=== PATIENT | female | born 1980 | race American Indian/Alaskan Native ===

== ENCOUNTER 2016-11-15 16:50 | Emergency (ER) | payer SELFPAY ==
[2016-11-15] MEDS ORDERED: ACETAMINOPHEN TAB 500 MG TAB PO STA (18:42)
[2016-11-15] MEDS ORDERED: IBUPROFEN 600 MG TAB PO STA (18:42)
--- NOTE | 2016-11-15 18:47 | ED ---
Fever HPI - General Chief Complaint: Fever Stated Complaint: Chills Time Seen by Provider: 11/15/16 18:38 Source: patient, family, RN notes reviewed Mode of arrival: ambulatory - History of Present Illness Initial Comments: 35-year-old female presents to the emergency department with a chief complaint of fever. The patient has had a fever for the past day or so. They've not been given any medication. She complains of throat pain she complains of a cough. There's been no nausea or vomiting. They deny any significant health history they deny any nausea or vomiting. They were concerned due to the continued fevers so they thought that they should be seen. Patient denies any recent shortness of breath, chest pain, back pain, abdominal pain, nausea vomiting, numbness or tingling, dysuria or hematuria, constipation or diarrhea, headaches or visual changes, or any other current symptoms. - Related Data Previous Rx's Medication Instructions Recorded Amoxicillin 500 mg PO Q8H #21 capsule 11/15/16 Allergies Allergy/AdvReac Type Severity Reaction Status Date / Time No Known Allergies Allergy Verified 11/15/16 18:46 Review of Systems ROS Statement: Those systems with pertinent positive or pertinent negative responses have been documented in the HPI. ROS Other: All systems not noted in ROS Statement are negative. Past Medical History Past Medical History: No Reported History History of Any Multi-Drug Resistant Organisms: None Reported Past Surgical History: No Surgical Hx Reported Past Psychological History: No Psychological Hx Reported Smoking Status: Never smoker Past Alcohol Use History: None Reported Past Drug Use History: None Reported General Exam - General Exam Comments Initial Comments: General exam: Alert, active, comfortable in no apparent distress Head: Normocephalic Eyes: Normal reaction of pupils, equal size, normal range of extraocular motion Ears: normal external ear canals, pink tympanic membranes with normal cone of light Nose: clear with pink turbinates Throat: Erythema with exudates noted with enlarged tonsils. Neck: no masses, no nuchal rigidity Chest: no chest wall deformity Lungs: equal air entry with no crackles or wheeze CVS: S1 and S2 normal with no audible mumurs, regular rhythm Abdomen: no hepatosplenomegaly, normal bowel sounds, no guarding or rigidity Spine: no scoliosis or deformity Skin: no rashes Neurological: No focal deficits, tone is normal in all 4 extremities Course Vital Signs 11/15/16 17:24 Temperature 101.9 F H Pulse Rate 112 H Respiratory 18 Rate Blood Pressure 109/64 O2 Sat by Pulse 99 Oximetry Medical Decision Making - Medical Decision Making 35-year-old female presents to the EMERGENCY department with a chief complaint of fever. This time patient does appear to have acute pharyngitis. Due to the fever and the look of the throat we will start antibiotics. We discussed follow -up with her doctor and return parameters. We discussed all the patient's questions. Patient stated that understood and agree with the plan. They will be discharged home. - Radiology Data Radiology results: report reviewed, image reviewed Disposition Clinical Impression: Acute pharyngitis Disposition: HOME SELF-CARE Condition: Stable Instructions: Fever in Adults (ED), Pharyngitis (ED) Additional Instructions: Please use medication as discussed. Please follow up with family doctor if symptoms have not improved over the next two days. Please return to the emergency room if your symptoms increase or worsen or for any other concerns. Prescriptions: Amoxicillin 500 mg PO Q8H #21 capsule Referrals: Jake Jhaveri DO [Primary Care Provider] - 1-2 days Time of Disposition: 20:04
--- NOTE | 2016-11-15 19:03 | XR ---
EXAMINATION TYPE: XR chest 2V DATE OF EXAM: 11/15/2016 6:54 PM COMPARISON: Prior chest x-ray March 14, 2016. HISTORY: Fever and cough. TECHNIQUE: Frontal and lateral views of the chest are obtained. FINDINGS: There is no focal air space opacity, pleural effusion, or pneumothorax seen. The cardiac silhouette size is within normal limits. The osseous structures are intact. IMPRESSION: No acute pulmonary process. No significant change from prior.
[2016-11-15 20:14] VITALS: BP 121/56; PULSE 105; RESP 20; TEMP 100.3
== END 2016-11-15 20:13 | disposition home or self-care (01) ==
LOC: EC 16:50
DX: J02.9 Acute pharyngitis, unspecified (principal); R05 Cough
CPT/HCPCS: 71020; 87502; 99283

== ENCOUNTER → 2017-04-15 | Outpatient (CLI) | payer OTHER ==
--- NOTE | 2017-04-16 14:08 | US ---
EXAMINATION TYPE: US pelvis complete transvag DATE OF EXAM: 04/15/2017 COMPARISON: NONE CLINICAL HISTORY: N92.4 MENORRHAGIA WITH IUD. TECHNIQUE: Transvaginal (TV) and Transabdominal (TA) endovaginal scanning performed for better evalu ation of uterus, patient refused further evaluation Date of LMP: 3 weeks ago EXAM MEASUREMENTS: Uterus: 11.3 x 7.1 x 9.0 cm Endometrial Stripe: 1.2 cm Right Ovary: not visualized Left Ovary: 3.8 x 2.4 x 3.6 cm 1. 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 Endometrium: IUD in place 3. Right Ovary: not visualized 4. Left Ovary: 2.0 x 2.1 x 1.6 cm probable cyst 5. Bilateral Adnexa: wnl 6. Posterior cul-de-sac: no free fluid as described above. IMPRESSION: IUD present along the endometrium. Left ovarian cyst. Nonvisualization of the right ovary . Uterine leiomyoma
== END | disposition home or self-care (01) ==
LOC: RADUSWWP 15:36
PROVIDERS: ATTEND Obstetrics & Gynecology
DX: N83.202 Unspecified ovarian cyst, left side (principal); D25.9 Leiomyoma of uterus, unspecified
CPT/HCPCS: 76830; 76856

== ENCOUNTER 2017-10-05 04:50 | Outpatient (CLI) | payer OTHER ==
[2017-10-05 05:59] LABS: Appearance,Urine Clear (Clear); Bilirubin,Urine Negative (Negative); Blood,Urine Small (Negative); Color,Urine Yellow; Glucose,Urine (UA) Negative (Negative); Ketones,Urine Negative (Negative); Leukocyte Esterase,Urine Negative (Negative); Mucus,Urine Moderate /hpf; Nitrite,Urine Negative (Negative); Protein,Urine Trace (Negative); RBC,Urine 6 /hpf (0-5); Specific Gravity,Urine 1.017 (1.001-1.035); Squamous Epithelial Cell,Urine 1 /hpf (0-4); Urobilinogen,Urine <2.0 mg/dL (<2.0); WBC,Urine 1 /hpf (0-5)
[2017-10-05 06:10] VITALS: BP 130/72; PULSE 94; RESP 18; TEMP 98.2
[2017-10-05] MEDS ORDERED: ACETAMINOPHEN IV (For NPO) 1,000 MG in EMPTY BAG 1 BAG IVPB STA (06:35)
[2017-10-05] MEDS ORDERED: ceFAZolin IN SWFI 2 GM/20 ML SYRINGE IVP ONE (06:35)
[2017-10-05] MEDS ORDERED: LACTATED RINGERS 1,000 ML IV SCH (06:45)
--- NOTE | 2017-10-21 10:49 | P.MSEPDOC ---
Presenting Problems - Arrival Data Date of Arrival on Unit: 10/05/17 Time of Arrival on Unit: 04:53 Mode of Transport: Wheelchair - Complaint OB-Reason for Admission/Chief Complaint: Pain Comment: abdominal pain and back pain Medical History - Information : 5 Para: 4 Term: 4 : 0 Abortions: Spontaneous or Elective: 0 Number of Living Children: 4 - Gestational Age Gestational Age by CHANTALE (wks/days): 28 Weeks and 1 Days - History Comment: Denies problems with Review of Systems - Review of Systems Constitutional: No problems Breast: No problems ENT: No problems Cardiovascular: No problems Respiratory: No problems Gastrointestinal: No problems Genitourinary: No problems Musculoskeletal: No problems Neurological: No problems Skin: No problems Vital Signs - Temperature Temperature: 98.2 F Temperature Source: Temporal Artery Scan - Pulse Right Supine Brachial Pulse Rate: 94 Pulse Assessment Method: Automatic Cuff - Respirations Respiratory Rate: 18 Oxygen Delivery Method: Room Air O2 Sat by Pulse Oximetry: 98 - Blood Pressure Right Arm Blood Pressure: 130/72 Blood Pressure Mean: 91 Blood Pressure Source: Automatic Cuff Medical Screen Scoring (Pre) - Cervical Exam Dilation: 0 cm = 0 Membranes: Intact - Uterine Contractions Frequency: N/A Duration: N/A Intensity: N/A - Maternal Vital Signs Maternal Temperature: N/A Maternal Blood Pressure: N/A Maternal Respirations: N/A - Pain Assessment Pain Location and Character: Back Pain Scale Used: Numeric (1 - 10) Pain Intensity: 6 Pain Management Goal: 5 Pain Description: *Acute, Shooting Pain Radiation Location: Back Pain Frequency: Intermittent Pain Duration: 24 Pain Duration Units: Hours Pain Behavior: Fidgeting Effects of Pain: Moving slow Pain Aggravating Factors: ADL's - Maternal Trauma Maternal Trauma: N/A - Assessment Baseline FHR: 135 Heart Rate - NICHD Category: Category I (Normal) = 0 NST: Reactive Position: N/A Station: N/A - Total Score Total Score (Pre): 0 - Level of Risk Level of Risk: Low (0-5) Physician Notification (Pre) - Physician Notified Physician Notified Date: 10/05/17 Physician Notified Time: 05:10 Physician/Practitioner Notifed:: Dr López Spoke With: Dr López New Order Received: Yes - Notification Comment Comment: Obtain FFN and check cervix, don't send FFN if closed, send UA and may discharge to home if WNL, if not call back for orders Physician Notification (Post) - Physician Notified Physician Notified Date: 10/05/17 Physician Notified Time: 07:45 Physician/Practitioner Notified:: Dr López Spoke With: Dr López New Order Received: Yes - Notification Comment Comment: IV fluids given x 1 liter bolus, IV offirmev, IV kefzol. 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 rest, increase fluids and folllow up in office within one week Disposition - Disposition OB Disposition: Discharge to home Discharge Date: 10/05/17 Discharge Time: 08:00 I agree with the RN Medical Screening Exam: Yes Risk & Benefit of care provided described in d/c instruction: Yes Diagnosis: CALCULUS OF KIDNEY
== END 2017-10-05 08:03 | disposition home or self-care (01) ==
LOC: FBPOP 04:50
PROVIDERS: ATTEND Obstetrics & Gynecology Obstetrics
DX: O99.89 Other specified diseases and conditions complicating pregnancy, childbirth and the puerperium (principal); N20.2 Calculus of kidney with calculus of ureter; Z3A.28 28 weeks gestation of pregnancy
CPT/HCPCS: 59025; 96361; 96365; 96375; 81001; G0463; J0131; J0690; 99214

== ENCOUNTER 2017-12-20 09:41 | Inpatient (IN) | payer OTHER ==
[2017-12-28] MEDS: LACTATED RINGERS 1,000 ML IV SCH (12:15)
--- NOTE | 2017-12-28 12:33 | P.HPOB ---
History of Present Illness H&P Date: 12/28/17 This is a 37-year-old 5 Para 4004 EDC 12/20/2017 at 41-4/7 weeks' gestation. Patient was initially scheduled for induction this morning, she and her canceled late last night. She was seen in the office today, nonstress test was nonreactive. She was counseled thoroughly and elected to present for artificial amniorrhexis and oxytocin. Patient states fetus has been active throughout the . She denies uterine contractions, denies fluid leakage or vaginal bleeding. history: Blood type is O+, group B strep cultures positive, HIV testing , gonorrhea and chlamydia cultures all negative. VDRL nonreactive. Rubella status immune. One-hour Glucola 124. Social history patient is , she denies alcohol tobacco or drug use. Past obstetric history significant for spontaneous vaginal deliveries 4, all with the attendance of her mother in her home in the [facility]. No weight's are available. Family history is noncontributory. Current medications vitamins daily. ALLERGIES none known. Surgical history negative. Past medical history negative. On exam this is a pleasant female who understand Slovenian minimally. 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 Patient is 5 foot 6-1/2 inches, approximately 180 pounds, blood pressure 125/78, pulse 86, patient is afebrile. The general physical exam is within normal limits. The chest is clear in all vanessa. The cervix is 3 cm dilated, 50-60% effaced, -2 station, vertex presentation. Artificial amniorrhexis reveals meconium-stained fluid. heart rate is in the 140s baseline with minimal variability, no obvious decelerations noted. Impression: 41-4/7 weeks intrauterine , meconium-stained fluid, positive group B strep cultures, nonreactive NST. Here for induction of labor. Plan: Penicillin G per hospital protocol. Oxytocin per hospital protocol. Close maternal and surveillance. Analgesic options reviewed with the patient. Anticipate normal spontaneous vaginal delivery. Patient is hoping to have tubal ligation tomorrow morning pending progress. Review of Systems Constitutional: Reports as per HPI Past Medical History Past Medical History: No Reported History History of Any Multi-Drug Resistant Organisms: None Reported Past Surgical History: No Surgical Hx Reported Smoking Status: Never smoker Medications and Allergies Home Medications Medication Instructions Recorded Confirmed Type No Known Home Medications [No 06/03/17 10/05/17 History Known Home Medications] Allergies Allergy/AdvReac Type Severity Reaction Status Date / Time No Known Allergies Allergy Verified 10/05/17 04:59 Exam See dictation under HPI please Assessment and Plan Assessment: 41-4/7 weeks intrauterine , positive group B strep cultures, meconium- stained fluid, non-reactive NST in the office. Plan: Penicillin G per hospital protocol. Oxytocin per hospital protocol. Close maternal and surveillance. Anticipate normal spontaneous vaginal delivery. Patient hoping to proceed with tubal ligation tomorrow morning pending progress today. Time with Patient: Less than 30
[2017-12-28] MEDS ORDERED: LIDOCAINE 1% (PF) 10 MG/ML (30 ML SDV) SQ PRN (12:57)
[2017-12-28] MEDS ORDERED: TERBUTALINE 1 MG/ML VIAL SQ PRN (12:57)
[2017-12-28] MEDS ORDERED: CARBOPROST TROMETHAMINE 250 MCG/ML 1 ML AMP IM PRN (12:57)
[2017-12-28] MEDS ORDERED: PENICILLIN G POTASSIUM 5,000,000 UNIT in DEXTROSE 5% IN WATER 100 ML IVPB STA ×2 (12:57)
[2017-12-28] MEDS ORDERED: OXYTOCIN 10 UNIT/ML 1 ML VIAL IM PRN (12:57)
[2017-12-28] MEDS ORDERED: METHYLERGONOVINE 0.2 MG/ML 1 ML AMP IM PRN (12:57)
[2017-12-28] MEDS ORDERED: OXYTOCIN 20 UNITS/1000 ML NS 1,000 ML IV SCH (13:00)
[2017-12-28 13:45] VITALS: BMI 31.7
[2017-12-28 14:12] LABS: Anisocytosis Slight; Basophils % (A) 0 %; Eosinophils # (A) 0.1 k/uL (0-0.7); Eosinophils % (A) 1 %; HCT 40.6 % (34.0-46.0); HGB 12.8 gm/dL (11.4-16.0); Lymphocytes # (A) 1.6 k/uL (1.0-4.8); Lymphocytes % (A) 24 %; MCH 25.4 pg (25.0-35.0); MCHC 31.5 g/dL (31.0-37.0); MCV 80.7 fL (80.0-100.0); Mean Platelet Volume 8.7; Microcytosis Slight; Monocytes # (A) 0.5 k/uL (0-1.0); Monocytes % (A) 7 %; Neutrophils # (A) 4.3 k/uL (1.3-7.7); Neutrophils % (A) 65 %; Platelet Count 216 k/uL (150-450); RBC 5.03 m/uL (3.80-5.40); RDW 17.1 % (11.5-15.5); WBC 6.6 k/uL (3.8-10.6)
[2017-12-28] MEDS ORDERED: SIMETHICONE 80 MG CHEWABLE PO PRN (18:07)
[2017-12-28] MEDS ORDERED: diphenhydrAMINE 50 MG/ML 1 ML VIAL IVP PRN ×2 (18:07)
[2017-12-28] MEDS ORDERED: WITCH HAZEL 1 EACH MED..PAD TOPICAL PRN (18:07)
[2017-12-28] MEDS ORDERED: HYDROCORTISONE 2.5% RECTAL CREAM 30 GM TUBE RECTAL PRN (18:07)
[2017-12-28] MEDS ORDERED: ZOLPIDEM 5 MG TAB PO PRN (18:07)
[2017-12-28] MEDS ORDERED: LANOLIN CREAM 5 GM TUBE TOPICAL PRN (18:07)
[2017-12-28] MEDS ORDERED: diphenhydrAMINE 25 MG CAP PO PRN (18:07)
[2017-12-28] MEDS ORDERED: diphenhydrAMINE 50 MG CAP PO PRN (18:07)
[2017-12-28] MEDS ORDERED: BENZOCAINE/MENTHOL SPRAY 1 GM/SPRAY AEROSOL TOPICAL PRN (18:07)
--- NOTE | 2017-12-28 18:07 | P.PROBDLV ---
Vaginal Delivery Note - . Vaginal Delivery Note: This is a 37-year-old female 5 para 4004 EDC 12/20/2017 at 41-4/7 weeks ' gestation. Patient presented from the office with a nonreactive NST. She initially declined, but then consented to induction. Fetus is been active throughout the . is remarkable for positive group B strep cultures, please see admitting H&P for details. Artificial amniorrhexis revealed meconium-stained fluid. Oxytocin was started, and increased very gradually secondary to concerns with heart tones. Throughout the first stage of labor for there were several episodes of nonreassuring heart tones, this was discussed with the patient and her in detail. Their wish was to continue with vaginal delivery, understanding that there were concerns regarding decelerations. Antibiotics were given for positive group B strep cultures, penicillin G 5 million units. Upon checking the patient, she was noted to be in the room pushing, without medical attendance. She was checked and noted to be completely dilated, . 's head delivered occiput anterior and restituted accordingly, there was no nuchal cord noted. Patient officially delivered a liveborn female infant at 1746 hours. Umbilical cord was doubly clamped and ligated, she was handed to waiting nurses for evaluation where scores of 9 and 10 at one and 5 minutes respectively were given. The placenta delivered spontaneously, it was inspected and noted to be intact with trivascular cord and deeply meconium-stained, at 1755 hours. At this time the perineal body was redraped. Inspection of the cervix, vagina, perineum, periurethral and perirectal areas revealed no lacerations and no defects. Total estimated blood loss 250 mL's. weighed 8 lbs. 2 oz. or 3680 g. All sponge needle and enhancement counts are correct at the end of the procedure. The patient and her family are allowed to begin the bonding experience in the LDR.
[2017-12-28] MEDS: IBUPROFEN 600 MG TAB PO PRN (18:26)
[2017-12-29] MEDS: LACTATED RINGERS 1,000 ML IV SCH (02:42)
[2017-12-29] MEDS: SENNOSIDES-DOCUSATE SODIUM 1 EACH TAB PO SCH ×3 (02:42→20:21)
[2017-12-29] MEDS: PENICILLIN G POTASSIUM 2,500,000 UNIT in DEXTROSE 5% IN WATER 100 ML IVPB SCH ×2 (02:43)
[2017-12-29] MEDS: IBUPROFEN 600 MG TAB PO PRN (04:41)
[2017-12-29] MEDS ORDERED: LACTATED RINGERS 1,000 ML IV ONE (06:25)
[2017-12-29] MEDS ORDERED: KETOROLAC 30 MG/ML 1 ML VIAL ONE (06:59)
[2017-12-29] MEDS ORDERED: MIDAZOLAM 2 MG/2 ML VIAL ONE (06:59)
[2017-12-29] MEDS ORDERED: fentaNYL (PF) 50 MCG/ML 2 ML AMP ONE (06:59)
--- NOTE | 2017-12-29 07:41 | P.OP ---
Date of Procedure: 12/29/17 Preoperative Diagnosis: Undesired fertility Postoperative Diagnosis: Normal-appearing tubes and ovaries bilaterally Procedure(s) Performed: tubal ligation Anesthesia: spinal Surgeon: Luci Kim Estimated Blood Loss (ml): 3 IV fluids (ml): 200 Urine output (ml): 0 Pathology: none sent Condition: stable Disposition: PACU Description of Procedure: Patient is brought to the operating suite where a spinal anesthetic is administered without difficulty. She's placed in the dorsal supine position. No antibiotics are deemed necessary. The appropriate timeout is performed to assure proper patient and procedural identification. The abdomen is prepped and draped in usual sterile fashion. A small infraumbilical incision is made in this is carried down through the subcutaneous tissue which is approximately 1 cm in depth. Fascia is isolated, scored and extended bilaterally. Peritoneum is next identified and incised. The left fallopian tube is grasped with a Nadya clamp and brought into the operative field. Fimbriated and is identified. Filshie clip is placed in the isthmic portion with care to traverse the entire tube into the mesal salpinx. Hemostasis is excellent. Same procedure is carried out contralaterally on the right tube, again fimbriated and is visualized for proper placement. Clip is placed through the entire diameter of the tube into the mesal salpinx. Bilateral ovaries appear normal to inspection. Fascia is closed in a running stitch of 0 Vicryl suture. 4-0 undyed Monocryl issues for final skin closure. Steri-Strips and Mastisol are applied to the wound. Patient is brought back to recovery room in excellent condition with stable vital signs. Toradol is given prior to leaving the operative suite.
--- NOTE | 2017-12-29 07:45 | P.DS ---
Providers Date of admission: 12/28/17 11:33 Expected date of discharge: 12/29/17 Attending physician: Luci Kim Primary care physician: [facility] Course: This is a 37-year-old female 5 para 4004 who presented from the office at 41-4/7 weeks with a nonreactive NST. Decision was made for induction. Positive group B strep cultures were noted in the , please see my admit history and physical for details. Artificial amniorrhexis revealed meconium-stained fluid. A small amount of oxytocin was needed. Antibiotics are given. Patient went on to deliver a liveborn female infant with scores of 9 and 10 at one and 5 minutes respectively. Infant weighed 8 lbs. 2 oz., delivery was unremarkable. No perineal suturing was deemed necessary. Patient strongly desired tubal ligation and that was scheduled for this morning. tubal ligation has been performed and is unremarkable. Estimated blood loss 3 mL's. Please see separately dictated operative note for details. [place] is doing well. Plan is for discharge home later today. Patient will follow-up with me in the office in 6 weeks. I have reminded them no intercourse until bleeding has subsided. She will use [id number] ibuprofen products as needed for pain. I have given them a prescription for breast pump per the request. Continue vitamin daily. Call with any fevers shakes or chills, foul smelling or copious lochia, with the passage of large blood clots, with any pain not alleviated by [id number] products, or indeed with any concerns. Patient Condition at Discharge: Good Plan - Discharge Summary New Discharge Prescriptions: No Action No Known Home Medications [No Known Home Medications] Discharge Medication List No Known Home Medications [No Known Home Medications] 06/03/17 [History] Follow up Appointment(s)/Referral(s): Luci Kim MD [STAFF PHYSICIAN] - 6 Weeks Discharge Disposition: HOME SELF-CARE
[2017-12-29] MEDS: ACETAMINOPHEN TAB 325 MG TAB PO PRN ×3 (12:49→23:08)
[2017-12-30] MEDS: ACETAMINOPHEN TAB 325 MG TAB PO PRN ×2 (03:53→15:15)
--- NOTE | 2017-12-30 07:14 | P.DS ---
Providers Date of admission: 12/28/17 11:33 Expected date of discharge: 12/30/17 Attending physician: Luci Kim Primary care physician: [facility] Course: This is an addendum to the discharge summary dictated yesterday. Infant was For an additional 24 hours for antibiotic administration per pediatric recommendation. Patient slept well through the night, is again judged to be in very good condition for discharge home. The small infraumbilical incision is well-healed, Steri-Strips applied. Bleeding is minimal. Breast-feeding is going well. Patient has no additional questions or concerns. She will follow- up with me in the office in 6 weeks. Patient Condition at Discharge: Good Plan - Discharge Summary New Discharge Prescriptions: No Action No Known Home Medications [No Known Home Medications] Discharge Medication List No Known Home Medications [No Known Home Medications] 06/03/17 [History] Follow up Appointment(s)/Referral(s): Luci Kim MD [STAFF PHYSICIAN] - 6 Weeks Discharge Disposition: HOME SELF-CARE
[2017-12-30] MEDS: IBUPROFEN 600 MG TAB PO PRN (08:34)
[2017-12-30] MEDS: SENNOSIDES-DOCUSATE SODIUM 1 EACH TAB PO SCH (08:35)
[2017-12-30 09:29] VITALS: BP 117/67; PULSE 76; RESP 16; TEMP 98.3
== END 2017-12-30 15:45 | disposition home or self-care (01) | DRG 767 ==
LOC: 4FBP 12-28 11:33
PROVIDERS: ADMIT Obstetrics & Gynecology; ATTEND Obstetrics & Gynecology
DX: O48.0 Post-term pregnancy (principal); O99.824 Streptococcus B carrier state complicating childbirth; O77.0 Labor and delivery complicated by meconium in amniotic fluid; Z37.0 Single live birth; Z3A.41 41 weeks gestation of pregnancy; Z30.2 Encounter for sterilization
CPT/HCPCS: 85025; 88307

== ENCOUNTER 2018-02-24 13:41 | Emergency (ER) | payer OTHER ==
--- NOTE | 2018-02-24 14:21 | ED ---
General Adult HPI - General Chief complaint: Abdominal Pain Stated complaint: abd pain Time Seen by Provider: 02/24/18 14:20 Source: loan workout officer, Caregiver Mode of arrival: ambulatory Limitations: language barrier - History of Present Illness Initial comments: Nila is a 37 yo female currently 6wks post who presents to the ED today via private car for evaluation of lower pelvic cramping and vaginal bleeding. The patient reports that she had a spontaneous vaginal delivery and elective tubal ligation on December 28. The delivery was uncomplicated. Patient reports that she did well in the immediate period. She states that she subsequently began to feel as though her uterus was falling into her vagina, she states that for the past week she has been feeling as if her uterus is falling and she has to push it back in. She also reports she's having significant cramping which is similar to menstrual cramping but worse. Patient reports that yesterday she began having her menstrual period, she states that this is her first menstrual cycle since the delivery of her child. Patient denies any fevers, chills, nausea, vomiting any change in appetite or activity level. She is currently breast-feeding and having no complications with that. She reports that her last bowel movement was yesterday and was firm but there is no leg. Patient does report urinary frequency and a constant urge to urinate. She is currently menstruating cannot comment on whether or not there is blood in her urine. She reports that she has only had to use one or 2 pads per day for the past 2 days and that she is not having a heavy period which she used to have prior to having the baby. She reports that she has followed up with her dish carrier Dr. Kim since delivering the baby, and addition she has a follow-up appointment on March [address] Kim. - Related Data Home Medications Medication Instructions Recorded Confirmed No Known Home Medications 06/03/17 02/24/18 Allergies Allergy/AdvReac Type Severity Reaction Status Date / Time No Known Allergies Allergy Verified 02/24/18 14:24 Review of Systems ROS Statement: Those systems with pertinent positive or pertinent negative responses have been documented in the HPI. ROS Other: All systems not noted in ROS Statement are negative. Constitutional: Denies: fever Respiratory: Denies: dyspnea Cardiovascular: Denies: chest pain, palpitations Endocrine: Denies: fatigue Gastrointestinal: Reports: abdominal pain, nausea. Denies: vomiting Genitourinary: Reports: urgency, frequency, abnormal menses. Denies: discharge Musculoskeletal: Denies: back pain Skin: Denies: rash Neurological: Denies: headache, weakness Psychiatric: Denies: anxiety, depression Hematological/Lymphatic: Denies: easy bleeding, easy bruising Past Medical History Past Medical History: No Reported History Additional Past Medical History / Comment(s): had baby01/28 History of Any Multi-Drug Resistant Organisms: None Reported Past Surgical History: Tubal Ligation Past Anesthesia/Blood Transfusion Reactions: No Reported Reaction Past Psychological History: No Psychological Hx Reported Smoking Status: Never smoker Past Alcohol Use History: None Reported Past Drug Use History: None Reported - Past Family History Father Family Medical History: No Reported History General Exam Limitations: language barrier General appearance: alert, in no apparent distress Head exam: Present: atraumatic, normocephalic Eye exam: Present: normal appearance, PERRL ENT exam: Present: normal exam Neck exam: Present: normal inspection Respiratory exam: Present: normal lung sounds bilaterally. Absent: respiratory distress Cardiovascular Exam: Present: regular rate, normal rhythm, normal heart sounds GI/Abdominal exam: Present: soft, distended. Absent: tenderness, guarding, rebound Extremities exam: Present: normal inspection, normal capillary refill. Absent: pedal edema Back exam: Present: normal inspection Neurological exam: Present: alert, oriented X3 Psychiatric exam: Present: normal affect, normal mood Skin exam: Present: warm, dry, intact Course Vital Signs 02/24/18 02/24/18 14:02 18:15 Temperature 98.4 F 97.5 F L Pulse Rate 88 73 Respiratory 16 18 Rate Blood Pressure 102/69 109/69 O2 Sat by Pulse 97 97 Oximetry Medical Decision Making - Medical Decision Making The patient was seen and evaluated, history was obtained from the patient and daughter. Patient's understands Uzbek but speaks minimal Uzbek, daughter felt comfortable acting as transmission system operator. Patient is approximately 8 weeks complaining of pelvic pressure and cramping, describes a sensation of feeling that her uterus is falling out She also has urinary frequency and urgency Labs, ultrasound imaging were ordered Labs no significant abnormalities UA with evidence of menstrual blood contamination but no evidence of urinary tract infection Pelvic ultrasound with no significant abnormalities Pelvic exam reveals no uterine prolapse, however the patient was in a head down position for this exam. I advised the patient that at this time there is no emergent needs for gynecology consultation. I advised her that it is possible that she has some pelvic floor dysfunction secondary to giving for the fourth time. Advised patient to follow up with her dish carrier as needed or return to the ER if she has any worsening pain or discomfort. All questions pertaining care were answered the best my ability patient was discharged home in stable condition. - Lab Data Result diagrams: 02/24/18 15:21 02/24/18 15:21 Lab Results 02/24/18 02/24/18 02/24/18 Range/Units 14:22 14:22 15:21 WBC 4.6 (3.8-10.6) k/uL RBC 4.73 (3.80-5.40) m/uL Hgb 12.3 (11.4-16.0) gm/dL Hct 37.8 (34.0-46.0) % MCV 80.0 (80.0-100.0) fL MCH 25.9 (25.0-35.0) pg MCHC 32.4 (31.0-37.0) g/dL RDW 14.1 (11.5-15.5) % Plt Count 284 (150-450) k/uL Neutrophils % 53 % Lymphocytes % 35 % Monocytes % 7 % Eosinophils % 1 % Basophils % 1 % Neutrophils # 2.4 (1.3-7.7) k/uL Lymphocytes # 1.6 (1.0-4.8) k/uL Monocytes # 0.3 (0-1.0) k/uL Eosinophils # 0.1 (0-0.7) k/uL Basophils # 0.0 (0-0.2) k/uL Sodium (137-145) mmol/L Potassium (3.5-5.1) mmol/L Chloride (98-107) mmol/L Carbon Dioxide (22-30) mmol/L Anion Gap mmol/L BUN (7-17) mg/dL Creatinine (0.52-1.04) mg/dL Est GFR (CKD-EPI)AfAm (>60 ml/min/1.73 sqM) Est GFR (CKD-EPI)NonAf (>60 ml/min/1.73 sqM) Glucose (74-99) mg/dL Calcium (8.4-10.2) mg/dL Magnesium (1.6-2.3) mg/dL Total Bilirubin (0.2-1.3) mg/dL AST (14-36) U/L ALT (9-52) U/L Alkaline Phosphatase (38-126) U/L Total Protein (6.3-8.2) g/dL Albumin (3.5-5.0) g/dL HCG, Quant mIU/mL Urine Color Yellow Urine Appearance Clear (Clear) Urine pH 6.0 (5.0-8.0) Ur Specific [place] 1.015 (1.001-1.035) Urine Protein Negative (Negative) Urine Glucose (UA) Negative (Negative) Urine Ketones Negative (Negative) Urine Blood Moderate H (Negative) Urine Nitrite Negative (Negative) Urine Bilirubin Negative (Negative) Urine Urobilinogen <2.0 (<2.0) mg/dL Ur Leukocyte Esterase Moderate H (Negative) Urine RBC 33 H (0-5) /hpf Urine WBC 8 H (0-5) /hpf Ur Squamous Epith Cells 8 H (0-4) /hpf Urine Mucus Rare H (None) /hpf Urine HCG, Qual Not Detected (Not Detectd) 02/24/18 Range/Units 15:21 WBC (3.8-10.6) k/uL RBC (3.80-5.40) m/uL Hgb (11.4-16.0) gm/dL Hct (34.0-46.0) % MCV (80.0-100.0) fL MCH (25.0-35.0) pg MCHC (31.0-37.0) g/dL RDW (11.5-15.5) % Plt Count (150-450) k/uL Neutrophils % % Lymphocytes % % Monocytes % % Eosinophils % % Basophils % % Neutrophils # (1.3-7.7) k/uL Lymphocytes # (1.0-4.8) k/uL Monocytes # (0-1.0) k/uL Eosinophils # (0-0.7) k/uL Basophils # (0-0.2) k/uL Sodium 139 (137-145) mmol/L Potassium 4.4 (3.5-5.1) mmol/L Chloride 108 H (98-107) mmol/L Carbon Dioxide 24 (22-30) mmol/L Anion Gap 7 mmol/L BUN 15 (7-17) mg/dL Creatinine 0.50 L (0.52-1.04) mg/dL Est GFR (CKD-EPI)AfAm >90 (>60 ml/min/1.73 sqM) Est GFR (CKD-EPI)NonAf >90 (>60 ml/min/1.73 sqM) Glucose 98 (74-99) mg/dL Calcium 9.4 (8.4-10.2) mg/dL Magnesium 1.9 (1.6-2.3) mg/dL Total Bilirubin 0.5 (0.2-1.3) mg/dL AST 21 (14-36) U/L ALT 35 (9-52) U/L Alkaline Phosphatase 43 (38-126) U/L Total Protein 6.7 (6.3-8.2) g/dL Albumin 3.9 (3.5-5.0) g/dL HCG, Quant <2.4 mIU/mL Urine Color Urine Appearance (Clear) Urine pH (5.0-8.0) Ur Specific [place] (1.001-1.035) Urine Protein (Negative) Urine Glucose (UA) (Negative) Urine Ketones (Negative) Urine Blood (Negative) Urine Nitrite (Negative) Urine Bilirubin (Negative) Urine Urobilinogen (<2.0) mg/dL Ur Leukocyte Esterase (Negative) Urine RBC (0-5) /hpf Urine WBC (0-5) /hpf Ur Squamous Epith Cells (0-4) /hpf Urine Mucus (None) /hpf Urine HCG, Qual (Not Detectd) Disposition Clinical Impression: Vaginal bleeding Disposition: HOME SELF-CARE Condition: Good Instructions: Dysfunctional Uterine Bleeding (ED) Is patient prescribed a controlled substance at d/c from ED?: No Referrals: Jake Jhaveri DO [Primary Care Provider] - 1-2 days Time of Disposition: 17:53
[2018-02-24 15:35] LABS: Basophils % (A) 1 %; Eosinophils # (A) 0.1 k/uL (0-0.7); Eosinophils % (A) 1 %; HCT 37.8 % (34.0-46.0); HGB 12.3 gm/dL (11.4-16.0); Lymphocytes # (A) 1.6 k/uL (1.0-4.8); Lymphocytes % (A) 35 %; MCH 25.9 pg (25.0-35.0); MCHC 32.4 g/dL (31.0-37.0); Mean Platelet Volume 6.9; Monocytes # (A) 0.3 k/uL (0-1.0); Monocytes % (A) 7 %; Neutrophils # (A) 2.4 k/uL (1.3-7.7); Neutrophils % (A) 53 %; Platelet Count 284 k/uL (150-450); RBC 4.73 m/uL (3.80-5.40); RDW 14.1 % (11.5-15.5); WBC 4.6 k/uL (3.8-10.6)
[2018-02-24 15:40] LABS: Appearance,Urine Clear (Clear); Bilirubin,Urine Negative (Negative); Blood,Urine Moderate (Negative); Color,Urine Yellow; Glucose,Urine (UA) Negative (Negative); Ketones,Urine Negative (Negative); Leukocyte Esterase,Urine Moderate (Negative); Mucus,Urine Rare /hpf; Nitrite,Urine Negative (Negative); Protein,Urine Negative (Negative); RBC,Urine 33 /hpf (0-5); Specific Gravity,Urine 1.015 (1.001-1.035); Squamous Epithelial Cell,Urine 8 /hpf (0-4); Urobilinogen,Urine <2.0 mg/dL (<2.0); WBC,Urine 8 /hpf (0-5)
[2018-02-24 16:10] LABS: ALT 35 U/L (9-52); AST 21 U/L (14-36); Albumin 3.9 g/dL (3.5-5.0); Alkaline Phosphatase 43 U/L (38-126); Anion Gap 7 mmol/L; Blood Urea Nitrogen 15 mg/dL (7-17); Calcium 9.4 mg/dL (8.4-10.2); Carbon Dioxide 24 mmol/L (22-30); Chloride 108 mmol/L (98-107); Glucose 98 mg/dL (74-99); Magnesium 1.9 mg/dL (1.6-2.3); Potassium 4.4 mmol/L (3.5-5.1); Sodium 139 mmol/L (137-145); Total Bilirubin 0.5 mg/dL (0.2-1.3); Total Protein 6.7 g/dL (6.3-8.2)
--- NOTE | 2018-02-24 16:16 | US ---
EXAMINATION TYPE: US pelvic complete DATE OF EXAM: 02/24/2018 COMPARISON: US CLINICAL HISTORY: Pain. Post 1 month, pt states vaginal bleeding, pelvic/back pain x 2 days TECHNIQUE: Transabdominal (TA). Transabdominal sonographic images of the pelvis were acquired. Date of LMP: Pt post 1 month EXAM MEASUREMENTS: Uterus: 9.0 x 5.8 x 7.8 cm Endometrial Stripe: 0.9 cm Right Ovary: 2.2 x 1.9 x 2.2 cm Left Ovary: 3.6 x 2.1 x 3.8 cm 1. Uterus: Anteverted Heterogeneous, appeared wnl for post 2. Endometrium: Appeared wnl 3. Right Ovary: wnl, follicles 4. Left Ovary: wnl, follicles Spectral, color and waveform doppler imaging shows good arterial and venous flow within the ovaries ; there is no evidence for ovarian torsion. 5. Bilateral Adnexa: wnl 6. Posterior cul-de-sac: wnl No abnormality visualized within pelvis to account for pt's symptoms IMPRESSION: Retained products of conception are not evident. No significant abnormality.
[2018-02-24 16:25] LABS: HCG,Quantitative Serum <2.4 mIU/mL
[2018-02-24 18:17] VITALS: BP 109/69; PULSE 73; RESP 18; TEMP 97.5
== END 2018-02-24 18:17 | disposition home or self-care (01) ==
LOC: EC 13:41
DX: N93.9 Abnormal uterine and vaginal bleeding, unspecified (principal); R14.0 Abdominal distension (gaseous); R10.2 Pelvic and perineal pain; R35.0 Frequency of micturition; R39.15 Urgency of urination; Z98.51 Tubal ligation status
CPT/HCPCS: 36415; 76856; 80053; 81001; 81025; 83735; 84702; 85025; 87086; 93975; 99284

== ENCOUNTER 2018-09-04 21:20 | Emergency (ER) | payer OTHER ==
[2018-09-04] MEDS ORDERED: ACETAMINOPHEN TAB 500 MG TAB PO STA (22:14)
--- NOTE | 2018-09-04 22:54 | ED ---
URI HPI - General Chief Complaint: Upper Respiratory Infection Stated Complaint: runny nose Time Seen by Provider: 09/04/18 21:57 Source: patient, RN notes reviewed, old records reviewed Mode of arrival: ambulatory Limitations: no limitations - History of Present Illness Initial Comments: 37 year old female with child with compliants of URI, cough, and sore throat for 2 days. Patient has had high fever and sinus tenderness. Patient has not had motrin or tylenol recently. - Related Data Previous Rx's Medication Instructions Recorded Azithromycin [Zithromax Z-pack] 250 mg PO DIRECTED #6 tab 09/04/18 Allergies Allergy/AdvReac Type Severity Reaction Status Date / Time No Known Allergies Allergy Verified 09/04/18 22:25 Review of Systems ROS Statement: Those systems with pertinent positive or pertinent negative responses have been documented in the HPI. ROS Other: All systems not noted in ROS Statement are negative. Past Medical History Past Medical History: No Reported History Additional Past Medical History / Comment(s): had baby01/28 History of Any Multi-Drug Resistant Organisms: None Reported Past Surgical History: Tubal Ligation Past Anesthesia/Blood Transfusion Reactions: No Reported Reaction Past Psychological History: No Psychological Hx Reported Smoking Status: Never smoker Past Alcohol Use History: None Reported Past Drug Use History: None Reported - Past Family History Father Family Medical History: No Reported History General Exam - General Exam Comments Initial Comments: Well appearing 37 year old female, no distress. Limitations: no limitations General appearance: alert, in no apparent distress Head exam: Present: atraumatic, normocephalic, normal inspection Eye exam: Present: normal appearance, PERRL, EOMI. Absent: scleral icterus, conjunctival injection, periorbital swelling ENT exam: Present: normal exam, mucous membranes moist, other (rhinnorhA). Absent: normal oropharynx (erythema) Neck exam: Present: normal inspection. Absent: tenderness, meningismus, lymphadenopathy Respiratory exam: Present: normal lung sounds bilaterally. Absent: respiratory distress, wheezes, rales, rhonchi, stridor Cardiovascular Exam: Present: regular rate, normal rhythm, normal heart sounds. Absent: systolic murmur, diastolic murmur, rubs, gallop, clicks GI/Abdominal exam: Present: soft, normal bowel sounds. Absent: distended, tenderness, guarding, rebound, rigid Extremities exam: Present: normal inspection, full ROM, normal capillary refill. Absent: tenderness, pedal edema, joint swelling, calf tenderness Back exam: Present: normal inspection Neurological exam: Present: alert, oriented X3, CN II-XII intact Psychiatric exam: Present: normal affect, normal mood Skin exam: Present: warm, dry, intact, normal color. Absent: rash Course Vital Signs 09/04/18 09/04/18 09/05/18 21:41 23:39 00:04 Temperature 99 F 98.9 F Pulse Rate 93 83 Respiratory 20 16 Rate Blood Pressure 125/87 111/64 O2 Sat by Pulse 95 99 Oximetry Medical Decision Making - Medical Decision Making Patient is a 37 year old female with cough for 2 days. Patient has fever. Normal CXR. Patient has negative infuenza testing. She has had continues cough while in ED. Will treat for bronchitis and sinusitis. Patient advised with otc treatment and return parameters discussed. - Lab Data Lab Results 09/04/18 Range/Units 22:29 Influenza Type A RNA Not Detected (Not Detectd) Influenza Type B (PCR) Not Detected (Not Detectd) - Radiology Data Radiology results: report reviewed Normal CXR. Disposition Clinical Impression: Sinusitis Disposition: HOME SELF-CARE Condition: Good Instructions (If sedation given, give patient instructions): Upper Respiratory Infection (ED) Additional Instructions: Patient needs to have Motrin or Tylenol every few hours. Take the medicines as prescribed. Follow-up with PCP. Return to emergency department if any alarming signs or symptoms occur. Prescriptions: Azithromycin [Zithromax Z-pack] 250 mg PO DIRECTED #6 tab Is patient prescribed a controlled substance at d/c from ED?: No Referrals: Jake Jhaveri DO [Primary Care Provider] - 1-2 days Time of Disposition: 23:55
--- NOTE | 2018-09-04 22:58 | XR ---
EXAMINATION TYPE: XR chest 2V DATE OF EXAM: 09/04/2018 COMPARISON: 11/15/2016 HISTORY: Cough and congestion TECHNIQUE: Frontal and lateral views of the chest are obtained. FINDINGS: Heart and mediastinum are normal. Lungs are clear. Diaphragm is normal. Bony thorax appear s normal. IMPRESSION: Normal chest. No change.
[2018-09-04 23:40] VITALS: TEMP 98.9
[2018-09-05 00:05] VITALS: BP 111/64; PULSE 83; RESP 16
== END 2018-09-05 00:05 | disposition home or self-care (01) ==
LOC: EC 21:20
DX: J32.9 Chronic sinusitis, unspecified (principal)
CPT/HCPCS: 71046; 87502; 99284

== ENCOUNTER 2020-10-11 17:55 | Emergency (ER) | payer OTHER ==
[2020-10-11 18:04] VITALS: BP 111/70; PULSE 79
--- NOTE | 2020-10-11 18:29 | ED ---
Abdominal Pain HPI - General Chief Complaint: Abdominal Pain Stated Complaint: abd pain Time Seen by Provider: 10/11/20 18:07 Source: patient Mode of arrival: ambulatory Limitations: no limitations, language barrier - History of Present Illness Initial Comments: 39-year-old female presents with right upper quadrant pain on and off for the last 2 weeks. Patient states the pain seems to be worse at night. Patient denies any nausea vomiting or change of appetite. No change of bowels. Patient having normal bowel movements. Patient denies any surgical history besides a tubal ligation. Patient has a history of 0 para 0. Patient states her menstrual cycles are normal. No dysuria no hematuria no back pain. No fever or chills. Patient still eating well and has normal appetite states feels bloated. MD Complaint: abdominal pain -: week(s) (2) Radiation: RUQ Consistency: intermittent Improves With: medication (tylenol) Worsens With: nothing, other ( evening) Associated Symptoms: denies other symptoms - Related Data LMP (females 10-50): 3 weeks Patient : No Previous Rx's Medication Instructions Recorded Azithromycin [Zithromax Z-pack (6 250 mg PO DIRECTED #6 tab 09/04/18 tabs)] Sulfamethox-Tmp 800-160Mg [Bactrim 1 each PO Q12HR #14 tab 10/11/20 DS 800-160 mg] Allergies Allergy/AdvReac Type Severity Reaction Status Date / Time No Known Allergies Allergy Verified 10/11/20 18:02 Review of Systems ROS Statement: Those systems with pertinent positive or pertinent negative responses have been documented in the HPI. ROS Other: All systems not noted in ROS Statement are negative. Constitutional: Reports: as per HPI Eyes: Reports: as per HPI ENT: Reports: as per HPI Respiratory: Reports: as per HPI Cardiovascular: Reports: as per HPI Endocrine: Reports: as per HPI. Denies: fatigue Gastrointestinal: Reports: abdominal pain. Denies: nausea, vomiting, diarrhea, constipation, hematemesis, hematochezia Genitourinary: Reports: as per HPI. Denies: urgency, dysuria Musculoskeletal: Reports: as per HPI Neurological: Denies: headache, weakness Past Medical History Past Medical History: No Reported History Additional Past Medical History / Comment(s): had History of Any Multi-Drug Resistant Organisms: None Reported Past Surgical History: Tubal Ligation Past Anesthesia/Blood Transfusion Reactions: No Reported Reaction Past Psychological History: No Psychological Hx Reported Smoking Status: Never smoker Past Alcohol Use History: None Reported Past Drug Use History: None Reported - Past Family History Father Family Medical History: No Reported History General Exam Limitations: no limitations, language barrier (has interpretor) General appearance: alert, in no apparent distress Eye exam: Present: normal appearance, PERRL, EOMI. Absent: scleral icterus, conjunctival injection, periorbital swelling ENT exam: Present: normal exam, mucous membranes moist Neck exam: Present: normal inspection. Absent: tenderness, meningismus, l ymphadenopathy Respiratory exam: Present: normal lung sounds bilaterally. Absent: respiratory distress, wheezes, rales, rhonchi, stridor Cardiovascular Exam: Present: regular rate, normal rhythm, normal heart sounds. Absent: systolic murmur, diastolic murmur, rubs, gallop, clicks GI/Abdominal exam: Present: soft, tenderness (ruq tender. no gurading, no rebound), normal bowel sounds. Absent: distended, guarding, rebound, rigid Expanded GI/Abdominal exam: Present: Galvan's sign. Absent: psoas sign, obturator sign, heel tap sign, ascites Course Vital Signs 10/11/20 10/11/20 10/11/20 17:59 18:45 20:03 Temperature 98.0 F Pulse Rate 79 Respiratory 18 16 16 Rate Blood Pressure 111/70 O2 Sat by Pulse 98 Oximetry 10/11/20 21:00 Temperature 97.8 F Pulse Rate Respiratory 16 Rate Blood Pressure O2 Sat by Pulse Oximetry Medical Decision Making - Medical Decision Making US revelaed renal cyst, no abnormalities to the gallbladder patient's lab work was essentially normal slight increase in rbc of the urine. Therefore we ordered a CAT scan due to patient still slightly uncomfortable and that only revealed right renal cyst 3 cm. Patient family aware will follow-up with family doctor for recheck. discussed with dr. hoffman - Lab Data Result diagrams: 10/11/20 18:45 10/11/20 18:45 Lab Results 10/11/20 10/11/20 10/11/20 Range/Units 18:15 18:15 18:45 WBC 5.1 (3.8-10.6) k/uL RBC 4.39 (3.80-5.40) m/uL Hgb 11.2 L (11.4-16.0) gm/dL Hct 34.4 (34.0-46.0) % MCV 78.4 L (80.0-100.0) fL MCH 25.4 (25.0-35.0) pg MCHC 32.4 (31.0-37.0) g/dL RDW 14.4 (11.5-15.5) % Plt Count 247 (150-450) k/uL MPV 7.5 Neutrophils % 56 % Lymphocytes % 31 % Monocytes % 9 % Eosinophils % 2 % Basophils % 0 % Neutrophils # 2.9 (1.3-7.7) k/uL Lymphocytes # 1.6 (1.0-4.8) k/uL Monocytes # 0.4 (0-1.0) k/uL Eosinophils # 0.1 (0-0.7) k/uL Basophils # 0.0 (0-0.2) k/uL Sodium (137-145) mmol/L Potassium (3.5-5.1) mmol/L Chloride (98-107) mmol/L Carbon Dioxide (22-30) mmol/L Anion Gap mmol/L BUN (7-17) mg/dL Creatinine (0.52-1.04) mg/dL Est GFR (CKD-EPI)AfAm (>60 ml/min/1.73 sqM) Est GFR (CKD-EPI)NonAf (>60 ml/min/1.73 sqM) Glucose (74-99) mg/dL Calcium (8.4-10.2) mg/dL Total Bilirubin (0.2-1.3) mg/dL AST (14-36) U/L ALT (4-34) U/L Alkaline Phosphatase (38-126) U/L Total Protein (6.3-8.2) g/dL Albumin (3.5-5.0) g/dL Amylase (30-110) U/L Lipase (23-300) U/L Urine Color Yellow Urine Appearance Turbid H (Clear) Urine pH 6.0 (5.0-8.0) Ur Specific [place] 1.027 (1.001-1.035) Urine Protein Trace H (Negative) Urine Glucose (UA) Trace H (Negative) Urine Ketones Negative (Negative) Urine Blood Moderate H (Negative) Urine Nitrite Negative (Negative) Urine Bilirubin Negative (Negative) Urine Urobilinogen 3.0 (<2.0) mg/dL Ur Leukocyte Esterase Trace H (Negative) Urine RBC 13 H (0-5) /hpf Urine WBC 2 (0-5) /hpf Ur Squamous Epith Cells 4 (0-4) /hpf Urine Bacteria Rare H (None) /hpf Hyaline Casts 1 (0-2) /lpf Urine Mucus Moderate H (None) /hpf Urine HCG, Qual Not Detected (Not Detectd) 10/11/20 Range/Units 18:45 WBC (3.8-10.6) k/uL RBC (3.80-5.40) m/uL Hgb (11.4-16.0) gm/dL Hct (34.0-46.0) % MCV (80.0-100.0) fL MCH (25.0-35.0) pg MCHC (31.0-37.0) g/dL RDW (11.5-15.5) % Plt Count (150-450) k/uL MPV Neutrophils % % Lymphocytes % % Monocytes % % Eosinophils % % Basophils % % Neutrophils # (1.3-7.7) k/uL Lymphocytes # (1.0-4.8) k/uL Monocytes # (0-1.0) k/uL Eosinophils # (0-0.7) k/uL Basophils # (0-0.2) k/uL Sodium 137 (137-145) mmol/L Potassium 4.0 (3.5-5.1) mmol/L Chloride 105 (98-107) mmol/L Carbon Dioxide 27 (22-30) mmol/L Anion Gap 5 mmol/L BUN 12 (7-17) mg/dL Creatinine 0.59 (0.52-1.04) mg/dL Est GFR (CKD-EPI)AfAm >90 (>60 ml/min/1.73 sqM) Est GFR (CKD-EPI)NonAf >90 (>60 ml/min/1.73 sqM) Glucose 115 H (74-99) mg/dL Calcium 9.0 (8.4-10.2) mg/dL Total Bilirubin 0.4 (0.2-1.3) mg/dL AST 18 (14-36) U/L ALT 11 (4-34) U/L Alkaline Phosphatase 36 L (38-126) U/L Total Protein 7.0 (6.3-8.2) g/dL Albumin 4.0 (3.5-5.0) g/dL Amylase 64 (30-110) U/L Lipase 107 (23-300) U/L Urine Color Urine Appearance (Clear) Urine pH (5.0-8.0) Ur Specific [place] (1.001-1.035) Urine Protein (Negative) Urine Glucose (UA) (Negative) Urine Ketones (Negative) Urine Blood (Negative) Urine Nitrite (Negative) Urine Bilirubin (Negative) Urine Urobilinogen (<2.0) mg/dL Ur Leukocyte Esterase (Negative) Urine RBC (0-5) /hpf Urine WBC (0-5) /hpf Ur Squamous Epith Cells (0-4) /hpf Urine Bacteria (None) /hpf Hyaline Casts (0-2) /lpf Urine Mucus (None) /hpf Urine HCG, Qual (Not Detectd) Disposition Clinical Impression: Abdominal pain, RUQ abdominal pain, Renal cyst, Hematuria Disposition: HOME SELF-CARE Condition: Fair Instructions (If sedation given, give patient instructions): Abdominal Pain (ED), Kidney Cyst (ED) Prescriptions: Sulfamethox-Tmp 800-160Mg [Bactrim DS 800-160 mg] 1 each PO Q12HR #14 tab Is patient prescribed a controlled substance at d/c from ED?: No Referrals: None,Stated [Primary Care Provider] - 1-2 days Time of Disposition: 22:08
[2020-10-11 18:46] VITALS: RESP 16
[2020-10-11 18:53] LABS: Appearance,Urine Turbid (Clear); Bacteria,Urine Rare /hpf; Bilirubin,Urine Negative (Negative); Blood,Urine Moderate (Negative); Color,Urine Yellow; Glucose,Urine (UA) Trace (Negative); Hyaline Casts,Urine 1 /lpf (0-2); Ketones,Urine Negative (Negative); Leukocyte Esterase,Urine Trace (Negative); Mucus,Urine Moderate /hpf; Nitrite,Urine Negative (Negative); Protein,Urine Trace (Negative); RBC,Urine 13 /hpf (0-5); Specific Gravity,Urine 1.027 (1.001-1.035); Squamous Epithelial Cell,Urine 4 /hpf (0-4); WBC,Urine 2 /hpf (0-5)
[2020-10-11 18:53] LABS: Basophils % (A) 0 %; Eosinophils # (A) 0.1 k/uL (0-0.7); Eosinophils % (A) 2 %; HCT 34.4 % (34.0-46.0); HGB 11.2 gm/dL (11.4-16.0); Lymphocytes # (A) 1.6 k/uL (1.0-4.8); Lymphocytes % (A) 31 %; MCH 25.4 pg (25.0-35.0); MCHC 32.4 g/dL (31.0-37.0); MCV 78.4 fL (80.0-100.0); Mean Platelet Volume 7.5; Monocytes # (A) 0.4 k/uL (0-1.0); Monocytes % (A) 9 %; Neutrophils # (A) 2.9 k/uL (1.3-7.7); Neutrophils % (A) 56 %; Platelet Count 247 k/uL (150-450); RBC 4.39 m/uL (3.80-5.40); RDW 14.4 % (11.5-15.5); WBC 5.1 k/uL (3.8-10.6)
[2020-10-11 19:03] LABS: ALT 11 U/L (4-34); AST 18 U/L (14-36); African American GFR (CKD) >90 (>60 ml/min/1.73 sqM); Alkaline Phosphatase 36 U/L (38-126); Amylase 64 U/L (30-110); Anion Gap 5 mmol/L; Blood Urea Nitrogen 12 mg/dL (7-17); Carbon Dioxide 27 mmol/L (22-30); Chloride 105 mmol/L (98-107); Glucose 115 mg/dL (74-99); Lipase 107 U/L (23-300); Non-African American GFR(CKD) >90 (>60 ml/min/1.73 sqM); Sodium 137 mmol/L (137-145); Total Bilirubin 0.4 mg/dL (0.2-1.3)
--- NOTE | 2020-10-11 20:03 | US ---
EXAMINATION TYPE: US abdomen limited DATE OF EXAM: 10/11/2020 COMPARISON: CT 02/06/2009 CLINICAL HISTORY: RUQ abd pain. Abdomen pain. No prior abdomen surgeries. EXAM MEASUREMENTS: Liver Length: 16.1 cm Gallbladder Wall: 0.1 cm CBD: 0.3 cm Right Kidney: 11.0 x 6.3 x 4.4 cm Pancreas: wnl Liver: wnl Gallbladder: wnl Evidence for sonographic Galvan's sign: neg CBD: wnl in size, limited due to partially being obscured by overlying bowel gas Right Kidney: mid simple cystic appearing lesion - 2.8 x 3.2 x 2.8 cm, there is some questionable lo w-level internal echoes however. There does appear to be imperceptible wall and increased through tra nsmission. IMPRESSION: No significant abnormality is evident. Parapelvic cyst suspected within the renal pelvis. Follow-up is recommended.
[2020-10-11 21:12] VITALS: TEMP 97.8
--- NOTE | 2020-10-11 21:24 | CT ---
EXAMINATION TYPE: CT abdomen pelvis w con DATE OF EXAM: 10/11/2020 COMPARISON: February 06, 2009 HISTORY: Right sided abdominal pain. CT DLP: 645.6 mGycm Automated exposure control for dose reduction was used. CONTRAST: Performed with IV Contrast, patient injected with 100 mL of Isovue 300. Images obtained from the diaphragm to the floor the pelvis with IV contrast. Lung bases are clear. There is no pleural effusion. Heart size is normal. There is no pericardial eff usion. Liver spleen stomach pancreas gallbladder appear normal. Bile ducts are not dilated. There is no adrenal mass. Kidneys show satisfactory contrast opacification. There is no hydronephrosi s. There is 3 cm cortical cyst posterior right kidney. Bladder distends smoothly. There is no inguina l hernia. There is no free fluid in the pelvis. Uterus is anteverted. Uterus is large and measures 12 cm in length. There is no mesenteric edema. There is no ascites or free air. There is no bowel obstruction. There i s no retroperitoneal adenopathy. Appendix is posterior and medial and appears normal. The lumbar vert ebra have normal spacing and alignment. Posterior elements are intact. The bony pelvis appears intact . IMPRESSION: Normal appendix. Right renal cortical cyst. Cyst appears increased in size compared to old exam.
== END 2020-10-11 22:10 | disposition home or self-care (01) ==
LOC: EC 17:55
DX: N28.1 Cyst of kidney, acquired (principal); R31.9 Hematuria, unspecified
CPT/HCPCS: 36415; 80053; 82150; 83690; 85025; 81001; 81025; 76705; 74177; 99284; Q9967

== ENCOUNTER 2021-10-02 15:28 | Emergency (ER) | payer OTHER ==
[2021-10-02 15:39] VITALS: RESP 18; TEMP 98.2
[2021-10-02 16:24] LABS: Basophils % (A) 0 %; Eosinophils # (A) 0.1 k/uL (0-0.7); Eosinophils % (A) 1 %; HCT 35.6 % (34.0-46.0); HGB 11.2 gm/dL (11.4-16.0); Hypochromasia Moderate; Lymphocytes # (A) 1.8 k/uL (1.0-4.8); Lymphocytes % (A) 30 %; MCH 25.7 pg (25.0-35.0); MCHC 31.6 g/dL (31.0-37.0); MCV 81.4 fL (80.0-100.0); Mean Platelet Volume 8.4; Monocytes # (A) 0.5 k/uL (0-1.0); Monocytes % (A) 8 %; Neutrophils # (A) 3.3 k/uL (1.3-7.7); Neutrophils % (A) 57 %; Platelet Count 279 k/uL (150-450); RBC 4.38 m/uL (3.80-5.40); RDW 14.9 % (11.5-15.5); WBC 5.8 k/uL (3.8-10.6)
[2021-10-02 16:30] LABS: Appearance,Urine Clear (Clear); Bacteria,Urine Occasional /hpf; Bilirubin,Urine Negative (Negative); Blood,Urine Small (Negative); Color,Urine Light Yellow; Glucose,Urine (UA) Negative (Negative); Ketones,Urine Negative (Negative); Leukocyte Esterase,Urine Small (Negative); Mucus,Urine Rare /hpf; Nitrite,Urine Negative (Negative); Protein,Urine Negative (Negative); RBC,Urine 6 /hpf (0-5); Specific Gravity,Urine 1.011 (1.001-1.035); Squamous Epithelial Cell,Urine 2 /hpf (0-4); Urobilinogen,Urine <2.0 mg/dL (<2.0); WBC,Urine 1 /hpf (0-5)
[2021-10-02 16:39] LABS: ALT 12 U/L (4-34); AST 18 U/L (14-36); African American GFR (CKD) >90 (>60 ml/min/1.73 sqM); Albumin 4.6 g/dL (3.5-5.0); Alkaline Phosphatase 45 U/L (38-126); Amylase 69 U/L (30-110); Anion Gap 9 mmol/L; Blood Urea Nitrogen 12 mg/dL (7-17); Calcium 9.5 mg/dL (8.4-10.2); Carbon Dioxide 22 mmol/L (22-30); Chloride 106 mmol/L (98-107); Glucose 95 mg/dL (74-99); Lipase 129 U/L (23-300); Non-African American GFR(CKD) >90 (>60 ml/min/1.73 sqM); Potassium 4.1 mmol/L (3.5-5.1); Sodium 137 mmol/L (137-145); Total Bilirubin 0.6 mg/dL (0.2-1.3); Total Protein 7.9 g/dL (6.3-8.2)
[2021-10-02 16:40] LABS: Partial Thromboplastin Time 26.4 sec (22.0-30.0); Prothrombin Time 10.7 sec (9.0-12.0)
--- NOTE | 2021-10-02 17:01 | US ---
EXAMINATION TYPE: US gallbladder DATE OF EXAM: 10/02/2021 COMPARISON: Prior ultrasound 10/11/2020 CLINICAL HISTORY: pain. RUQ pain. Hx renal cyst. EXAM MEASUREMENTS: Liver Length: 17.3 cm Gallbladder Wall: 0.2 cm CBD: 0.3 cm Right Kidney: 10.5 x 5.4 x 4.3 cm Pancreas: wnl as seen Liver: wnl Gallbladder: Fold seen. hypoechoic lesion adjacent to wall = 0.3 x 0.3 cm, nondependent echo is pr esent along the gallbladder wall, possible polyp or adherent stone Evidence for sonographic Galvan's sign: neg CBD: wnl Right Kidney: Two cysts seen with largest = 3.1 x 3.2 x 3.0 cm IMPRESSION: No abnormality evident to account for patient's symptoms. Parapelvic renal cyst is again noted. Possible gallbladder wall polyp, follow-up suggested, consider surgical consult. Limited exam.
--- NOTE | 2021-10-02 17:24 | ED ---
General Adult HPI - General Chief complaint: Abdominal Pain Stated complaint: Kidney pain Time Seen by Provider: 10/02/21 15:45 Source: patient, RN notes reviewed, old records reviewed Mode of arrival: ambulatory Limitations: language barrier - History of Present Illness Initial comments: 40-year-old female presenting for evaluation of abdominal pain. History is obtained from the son who is at bedside. Patient does not speak Beninese. Patient has had right upper quadrant pain for the past 3 days. This is worse with eating. She denies fever. Denies vomiting. Had a normal bowel movement today. Patient has had tubal ligation, no other abdominal surgeries. - Related Data Previous Rx's Medication Instructions Recorded Azithromycin [Zithromax Z-pack (6 250 mg PO DIRECTED #6 tab 09/04/18 tabs)] Sulfamethox-Tmp 800-160Mg [Bactrim 1 each PO Q12HR #14 tab 10/11/20 DS 800-160 mg] Omeprazole [PriLOSEC] 20 mg PO AC-BID #60 cap 10/02/21 Allergies Allergy/AdvReac Type Severity Reaction Status Date / Time No Known Allergies Allergy Verified 10/11/20 18:02 Review of Systems ROS Statement: Those systems with pertinent positive or pertinent negative responses have been documented in the HPI. ROS Other: All systems not noted in ROS Statement are negative. Past Medical History Past Medical History: No Reported History Additional Past Medical History / Comment(s): had baby01/28 History of Any Multi-Drug Resistant Organisms: None Reported Past Surgical History: Tubal Ligation Past Anesthesia/Blood Transfusion Reactions: No Reported Reaction Past Psychological History: No Psychological Hx Reported Smoking Status: Never smoker Past Alcohol Use History: None Reported Past Drug Use History: None Reported - Past Family History Father Family Medical History: No Reported History General Exam Limitations: no limitations General appearance: alert, in no apparent distress Head exam: Present: atraumatic, normocephalic Eye exam: Present: normal appearance, PERRL ENT exam: Present: normal exam Neck exam: Present: normal inspection. Absent: tenderness Respiratory exam: Present: normal lung sounds bilaterally, respiratory distress. Absent: wheezes Cardiovascular Exam: Present: regular rate, normal rhythm GI/Abdominal exam: Present: soft. Absent: distended, tenderness, guarding Extremities exam: Present: normal inspection, normal capillary refill. Absent: pedal edema, calf tenderness Neurological exam: Present: alert, oriented X3, CN II-XII intact. Absent: motor sensory deficit Psychiatric exam: Present: normal affect, normal mood Skin exam: Present: warm, dry, intact. Absent: cyanosis, diaphoretic Course Vital Signs 10/02/21 15:37 Temperature 98.2 F Pulse Rate 76 Respiratory 18 Rate Blood Pressure 121/78 O2 Sat by Pulse 98 Oximetry Medical Decision Making - Medical Decision Making 40-year-old female with right upper quadrant pain, worse with eating. No significant pain or tenderness on exam. Vital signs are stable. She has a normal CBC, normal CMP. Urinalysis shows 6 rbc's, no signs of infection. She has a known renal cyst from prior imaging. I did perform an ultrasound of the right upper quadrant gallbladder this was negative for acute cholecystitis or acute findings. There was a polyp. She may be having intermittent symptoms secondary to this polyp. I did discuss return parameters as well as follow-up with her primary care physician and general surgery. Patient is agreeable. - Lab Data Result diagrams: 10/02/21 16:15 10/02/21 16:15 Lab Results 10/02/21 10/02/21 10/02/21 Range/Units 16:15 16:15 16:15 WBC 5.8 (3.8-10.6) k/uL RBC 4.38 (3.80-5.40) m/uL Hgb 11.2 L (11.4-16.0) gm/dL Hct 35.6 (34.0-46.0) % MCV 81.4 (80.0-100.0) fL MCH 25.7 (25.0-35.0) pg MCHC 31.6 (31.0-37.0) g/dL RDW 14.9 (11.5-15.5) % Plt Count 279 (150-450) k/uL MPV 8.4 Neutrophils % 57 % Lymphocytes % 30 % Monocytes % 8 % Eosinophils % 1 % Basophils % 0 % Neutrophils # 3.3 (1.3-7.7) k/uL Lymphocytes # 1.8 (1.0-4.8) k/uL Monocytes # 0.5 (0-1.0) k/uL Eosinophils # 0.1 (0-0.7) k/uL Basophils # 0.0 (0-0.2) k/uL Hypochromasia Moderate PT 10.7 (9.0-12.0) sec INR 1.0 (<1.2) APTT 26.4 (22.0-30.0) sec Sodium (137-145) mmol/L Potassium (3.5-5.1) mmol/L Chloride (98-107) mmol/L Carbon Dioxide (22-30) mmol/L Anion Gap mmol/L BUN (7-17) mg/dL Creatinine (0.52-1.04) mg/dL Est GFR (CKD-EPI)AfAm (>60 ml/min/1.73 sqM) Est GFR (CKD-EPI)NonAf (>60 ml/min/1.73 sqM) Glucose (74-99) mg/dL Plasma Lactic Acid Dionicio (0.7-2.0) mmol/L Calcium (8.4-10.2) mg/dL Total Bilirubin (0.2-1.3) mg/dL AST (14-36) U/L ALT (4-34) U/L Alkaline Phosphatase (38-126) U/L Total Protein (6.3-8.2) g/dL Albumin (3.5-5.0) g/dL Amylase (30-110) U/L Lipase (23-300) U/L Urine Color Light Yellow Urine Appearance Clear (Clear) Urine pH 6.0 (5.0-8.0) Ur Specific [place] 1.011 (1.001-1.035) Urine Protein Negative (Negative) Urine Glucose (UA) Negative (Negative) Urine Ketones Negative (Negative) Urine Blood Small H (Negative) Urine Nitrite Negative (Negative) Urine Bilirubin Negative (Negative) Urine Urobilinogen <2.0 (<2.0) mg/dL Ur Leukocyte Esterase Small H (Negative) Urine RBC 6 H (0-5) /hpf Urine WBC 1 (0-5) /hpf Ur Squamous Epith Cells 2 (0-4) /hpf Urine Bacteria Occasional H (None) /hpf Urine Mucus Rare H (None) /hpf Urine HCG, Qual (Not Detectd) 10/02/21 10/02/21 10/02/21 Range/Units 16:15 16:15 16:15 WBC (3.8-10.6) k/uL RBC (3.80-5.40) m/uL Hgb (11.4-16.0) gm/dL Hct (34.0-46.0) % MCV (80.0-100.0) fL MCH (25.0-35.0) pg MCHC (31.0-37.0) g/dL RDW (11.5-15.5) % Plt Count (150-450) k/uL MPV Neutrophils % % Lymphocytes % % Monocytes % % Eosinophils % % Basophils % % Neutrophils # (1.3-7.7) k/uL Lymphocytes # (1.0-4.8) k/uL Monocytes # (0-1.0) k/uL Eosinophils # (0-0.7) k/uL Basophils # (0-0.2) k/uL Hypochromasia PT (9.0-12.0) sec INR (<1.2) APTT (22.0-30.0) sec Sodium 137 (137-145) mmol/L Potassium 4.1 (3.5-5.1) mmol/L Chloride 106 (98-107) mmol/L Carbon Dioxide 22 (22-30) mmol/L Anion Gap 9 mmol/L BUN 12 (7-17) mg/dL Creatinine 0.55 (0.52-1.04) mg/dL Est GFR (CKD-EPI)AfAm >90 (>60 ml/min/1.73 sqM) Est GFR (CKD-EPI)NonAf >90 (>60 ml/min/1.73 sqM) Glucose 95 (74-99) mg/dL Plasma Lactic Acid Dionicio 1.2 (0.7-2.0) mmol/L Calcium 9.5 (8.4-10.2) mg/dL Total Bilirubin 0.6 (0.2-1.3) mg/dL AST 18 (14-36) U/L ALT 12 (4-34) U/L Alkaline Phosphatase 45 (38-126) U/L Total Protein 7.9 (6.3-8.2) g/dL Albumin 4.6 (3.5-5.0) g/dL Amylase 69 (30-110) U/L Lipase 129 (23-300) U/L Urine Color Urine Appearance (Clear) Urine pH (5.0-8.0) Ur Specific [place] (1.001-1.035) Urine Protein (Negative) Urine Glucose (UA) (Negative) Urine Ketones (Negative) Urine Blood (Negative) Urine Nitrite (Negative) Urine Bilirubin (Negative) Urine Urobilinogen (<2.0) mg/dL Ur Leukocyte Esterase (Negative) Urine RBC (0-5) /hpf Urine WBC (0-5) /hpf Ur Squamous Epith Cells (0-4) /hpf Urine Bacteria (None) /hpf Urine Mucus (None) /hpf Urine HCG, Qual Not Detected (Not Detectd) Disposition Clinical Impression: Abdominal pain Disposition: HOME SELF-CARE Instructions (If sedation given, give patient instructions): Abdominal Pain (ED), Biliary Colic (ED) Additional Instructions: These return with fever, vomiting, worsening abdominal pain. Prescriptions: Omeprazole [PriLOSEC] 20 mg PO AC-BID #60 cap Is patient prescribed a controlled substance at d/c from ED?: No Referrals: Nonstaff,Physician [Primary Care Provider] - 1-2 days Luci Dawson MD [STAFF PHYSICIAN] - 1-2 days Time of Disposition: 17:22
[2021-10-02 17:50] VITALS: BP 115/75; PULSE 77
== END 2021-10-02 18:00 | disposition home or self-care (01) ==
LOC: EC 15:28
DX: R10.11 Right upper quadrant pain (principal); Z98.51 Tubal ligation status
CPT/HCPCS: 36415; 76705; 80053; 81001; 81025; 82150; 83605; 83690; 85025; 85610; 85730; 99284

== ENCOUNTER 2021-10-03 11:58 | Emergency (ER) | payer OTHER ==
[2021-10-03 12:03] VITALS: BP 122/75; PULSE 84; RESP 18; TEMP 99.1
--- NOTE | 2021-10-03 13:09 | ED ---
Abdominal Pain HPI - General Chief Complaint: Abdominal Pain Stated Complaint: Abdominal Pain Time Seen by Provider: 10/03/21 12:05 Source: patient, family Mode of arrival: ambulatory Limitations: language barrier - History of Present Illness Initial Comments: Patient is a 40-year-old female presenting for evaluation of abdominal pain x 4 days. Patient is here with son who serves as project construction assistant manager. Patient was seen in the on 10/[address] Mari with the same complaint. Symptoms were attributed to a polyp and patient was told to follow outpatient and return with worsening pain, fever, vomiting. She states that today the pain has worsened, it feels like a stabbing pain. It is worse after meals and worse with sitting forward. She has taken Tylenol which has been moderately helpful with symptoms. She admits to nausea. She denies vomiting, fever, chills, chest pain, shortness of breath, dysuria, urgency, frequency, flank pain, hematuria. - Related Data Home Medications Medication Instructions Recorded Confirmed Ketoconazole 2% Shampoo [Nizoral] 1 applic TOPICAL Q3D PRN 10/03/21 10/03/21 Previous Rx's Medication Instructions Recorded Omeprazole [PriLOSEC] 20 mg PO AC-BID #60 cap 10/02/21 Allergies Allergy/AdvReac Type Severity Reaction Status Date / Time No Known Allergies Allergy Verified 10/03/21 12:03 Review of Systems ROS Statement: Those systems with pertinent positive or pertinent negative responses have been documented in the HPI. ROS Other: All systems not noted in ROS Statement are negative. Past Medical History Past Medical History: No Reported History Additional Past Medical History / Comment(s): had baby01/28 History of Any Multi-Drug Resistant Organisms: None Reported Past Surgical History: Tubal Ligation Past Anesthesia/Blood Transfusion Reactions: No Reported Reaction Past Psychological History: No Psychological Hx Reported Smoking Status: Never smoker Past Alcohol Use History: None Reported Past Drug Use History: None Reported - Past Family History Father Family Medical History: No Reported History General Exam Limitations: language barrier General appearance: alert, in no apparent distress Head exam: Present: atraumatic, normocephalic, normal inspection Eye exam: Present: normal appearance, PERRL, EOMI. Absent: scleral icterus Neck exam: Present: normal inspection Respiratory exam: Present: normal lung sounds bilaterally. Absent: respiratory distress, wheezes, rales, rhonchi, stridor Cardiovascular Exam: Present: regular rate, normal rhythm, normal heart sounds. Absent: systolic murmur, diastolic murmur, rubs, gallop, clicks GI/Abdominal exam: Present: soft, tenderness (R upper qudrant), guarding, normal bowel sounds. Absent: distended, rebound Back exam: Absent: CVA tenderness (R), CVA tenderness (L) Neurological exam: Present: alert, oriented X3, CN II-XII intact Psychiatric exam: Present: normal affect, normal mood Course Vital Signs 10/03/21 11:59 Temperature 99.1 F Pulse Rate 84 Respiratory 18 Rate Blood Pressure 122/75 O2 Sat by Pulse 99 Oximetry - Reevaluation(s) Reevaluation #1: Reassessed patient stated the pain has been gradually subsiding but is not totally resolved. 10/03/21 15:30 Medical Decision Making - Medical Decision Making Patient is a 40-year-old female presenting for evaluation of abdominal pain. She was evaluated in the ED yesterday where they attributed her symptoms to a polyp. Due to her now increase in pain CT of the abdomen and pelvis with contrast was performed and showed no acute processes. UA, CBC, CMP, amylase, lipase were all within normal limits. Explained to patient the limitations of ER testing and encouraged follow-up with the surgeon provided by Dr. Mari yesterday in one to 2 days. Return to ER with worsening symptoms or new alarm symptoms that were discussed. All questions. Patient was agreeable to plan. Dr. Mari was the attending for this case. - Lab Data Result diagrams: 10/03/21 13:27 10/03/21 13:27 Lab Results 10/03/21 10/03/21 10/03/21 Range/Units 13:27 13: 13:27 WBC 5.3 (3.8-10.6) k/uL RBC 4.45 (3.80-5.40) m/uL Hgb 11.5 (11.4-16.0) gm/dL Hct 36.4 (34.0-46.0) % MCV 81.6 (80.0-100.0) fL MCH 25.7 (25.0-35.0) pg MCHC 31.5 (31.0-37.0) g/dL RDW 15.1 (11.5-15.5) % Plt Count 300 (150-450) k/uL MPV 7.6 Neutrophils % 64 % Lymphocytes % 25 % Monocytes % 6 % Eosinophils % 1 % Basophils % 0 % Neutrophils # 3.4 (1.3-7.7) k/uL Lymphocytes # 1.3 (1.0-4.8) k/uL Monocytes # 0.3 (0-1.0) k/uL Eosinophils # 0.0 (0-0.7) k/uL Basophils # 0.0 (0-0.2) k/uL Hypochromasia Moderate Sodium 136 L (137-145) mmol/L Potassium 4.6 (3.5-5.1) mmol/L Chloride 105 (98-107) mmol/L Carbon Dioxide 23 (22-30) mmol/L Anion Gap 8 mmol/L BUN 14 (7-17) mg/dL Creatinine 0.55 (0.52-1.04) mg/dL Est GFR (CKD-EPI)AfAm >90 (>60 ml/min/1.73 sqM) Est GFR (CKD-EPI)NonAf >90 (>60 ml/min/1.73 sqM) Glucose 94 (74-99) mg/dL Calcium 9.0 (8.4-10.2) mg/dL Total Bilirubin 0.5 (0.2-1.3) mg/dL AST 24 (14-36) U/L ALT 10 (4-34) U/L Alkaline Phosphatase 45 (38-126) U/L Total Protein 7.5 (6.3-8.2) g/dL Albumin 4.2 (3.5-5.0) g/dL Amylase 74 (30-110) U/L Lipase 124 (23-300) U/L Urine Color Light Yellow Urine Appearance Clear (Clear) Urine pH 7.0 (5.0-8.0) Ur Specific [place] 1.006 (1.001-1.035) Urine Protein Negative (Negative) Urine Glucose (UA) Negative (Negative) Urine Ketones Negative (Negative) Urine Blood Trace H (Negative) Urine Nitrite Negative (Negative) Urine Bilirubin Negative (Negative) Urine Urobilinogen <2.0 (<2.0) mg/dL Ur Leukocyte Esterase Negative (Negative) Urine RBC 2 (0-5) /hpf Urine WBC 1 (0-5) /hpf Ur Squamous Epith Cells <1 (0-4) /hpf Urine Bacteria Rare H (None) /hpf Disposition Clinical Impression: Right upper quadrant pain Disposition: HOME SELF-CARE Condition: Good Instructions (If sedation given, give patient instructions): Abdominal Pain (ED) Additional Instructions: Follow-up with GI in 2-3 days. Report back to ER with worsening symptoms or new onset symptoms Is patient prescribed a controlled substance at d/c from ED?: No Referrals: Nonstaff,Physician [Primary Care Provider] - 1-2 days Time of Disposition: 15:59
[2021-10-03 13:45] LABS: Appearance,Urine Clear (Clear); Bacteria,Urine Rare /hpf; Bilirubin,Urine Negative (Negative); Blood,Urine Trace (Negative); Color,Urine Light Yellow; Glucose,Urine (UA) Negative (Negative); Ketones,Urine Negative (Negative); Leukocyte Esterase,Urine Negative (Negative); Nitrite,Urine Negative (Negative); Protein,Urine Negative (Negative); RBC,Urine 2 /hpf (0-5); Specific Gravity,Urine 1.006 (1.001-1.035); Squamous Epithelial Cell,Urine <1 /hpf (0-4); Urobilinogen,Urine <2.0 mg/dL (<2.0); WBC,Urine 1 /hpf (0-5)
[2021-10-03] MEDS ORDERED: SODIUM CHLORIDE 0.9% 1,000 ML IV ONE (13:50)
[2021-10-03 15:09] LABS: Basophils % (A) 0 %; Eosinophils % (A) 1 %; HCT 36.4 % (34.0-46.0); HGB 11.5 gm/dL (11.4-16.0); Hypochromasia Moderate; Lymphocytes # (A) 1.3 k/uL (1.0-4.8); Lymphocytes % (A) 25 %; MCH 25.7 pg (25.0-35.0); MCHC 31.5 g/dL (31.0-37.0); MCV 81.6 fL (80.0-100.0); Mean Platelet Volume 7.6; Monocytes # (A) 0.3 k/uL (0-1.0); Monocytes % (A) 6 %; Neutrophils # (A) 3.4 k/uL (1.3-7.7); Neutrophils % (A) 64 %; Platelet Count 300 k/uL (150-450); RBC 4.45 m/uL (3.80-5.40); RDW 15.1 % (11.5-15.5); WBC 5.3 k/uL (3.8-10.6)
[2021-10-03 15:22] LABS: ALT 10 U/L (4-34); AST 24 U/L (14-36); African American GFR (CKD) >90 (>60 ml/min/1.73 sqM); Albumin 4.2 g/dL (3.5-5.0); Alkaline Phosphatase 45 U/L (38-126); Amylase 74 U/L (30-110); Anion Gap 8 mmol/L; Blood Urea Nitrogen 14 mg/dL (7-17); Carbon Dioxide 23 mmol/L (22-30); Chloride 105 mmol/L (98-107); Glucose 94 mg/dL (74-99); Lipase 124 U/L (23-300); Non-African American GFR(CKD) >90 (>60 ml/min/1.73 sqM); Potassium 4.6 mmol/L (3.5-5.1); Sodium 136 mmol/L (137-145); Total Bilirubin 0.5 mg/dL (0.2-1.3); Total Protein 7.5 g/dL (6.3-8.2)
--- NOTE | 2021-10-03 15:26 | CT ---
EXAMINATION TYPE: CT abdomen pelvis w con DATE OF EXAM: 10/03/2021 HISTORY: Abdominal pain. CT DLP: 1050.9mGycm Automated Exposure Control for Dose Reduction was Utilized. CONTRAST: CT scan of the abdomen and pelvis is performed with IV Contrast, patient injected with 100ml mL of Is ovue 300. COMPARISON: 10/11/2020 FINDINGS: Study quality: Artifact affecting the upper abdomen from motion and streak. LUNG BASES: Minimal subsegmental atelectasis INCLUDED CARDIAC STRUCTURES: Unremarkable LIVER: No significant abnormality is appreciated. GALLBLADDER : No significant abnormality is appreciated. BILIARY TREE: No abnormal biliary tree dilation. PANCREAS: No significant abnormality is seen. SPLEEN: No significant abnormality is seen. ADRENALS: No significant abnormality is seen. KIDNEYS AND URETERS: 3.4 cm right renal cyst no significant change. No renal collecting system dilata tion or calculi seen. No enhancing renal mass seen. URINARY BLADDER: No significant abnormality is appreciated. ESOPHAGUS: No significant abnormality is seen. STOMACH: No significant abnormality is seen. SMALL BOWEL: No significant abnormality is seen. LARGE BOWEL: No significant abnormality is seen. APPENDIX: No significant abnormality is seen. HERNIAS: No significant abnormality is seen. UTERUS/ADNEXA: The uterine fundus is enlarged and has a heterogeneous pattern of attenuation. The pos terior aspect of the myometrium/endometrium is ill defined. Low-attenuation extends posteriorly into the region of the upper cervix. The adnexa are difficult to visualize. PERITONEUM/MESENTRY: No pneumoperitoneum or ascites. LYMPH NODES: No enlarged retroperitoneal or pelvic lymph nodes are appreciated. MAJOR VASCULAR STRUCTURES: Nonaneurysmal aorta. Unremarkable inferior vena cava. OSSEOUS STRUCTURES: No acute osseous abnormality. Mild degenerative changes scattered throughout the spine. Soft tissue: No significant soft tissue swelling seen. Asymmetric right greater than left soft tissue of the right breast with small hypoattenuating densities. Correlation with mammography recommended. IMPRESSION: 1. No evidence for acute abdominal or pelvic process. 2. Heterogeneous appearance of the posterior aspect of the uterus and cervix, nonspecific, no signifi cant change, the differential would include leiomyomata, myometrial disease such as adenomyosis or ot her infiltrative disease, correlation with clinical history, physical examination/direct visualizatio n and pelvic ultrasound or pelvic MRI as clinically indicated. 3. Asymmetric appearance of breast tissue, correlation with mammography recommended.
== END 2021-10-03 16:18 | disposition home or self-care (01) ==
LOC: EC 11:58
DX: R10.11 Right upper quadrant pain (principal)
CPT/HCPCS: 36415; 80053; 82150; 83690; 85025; 81001; 74177; 99284; 96360; Q9967